=== PATIENT | female | born 1995 | race Caucasian/White ===

== ENCOUNTER 2016-10-20 09:22 | Emergency (ER) | payer MEDICAID ==
[2016-10-20 09:30] VITALS: BP 115/69; BMI 34.5
--- NOTE | 2016-10-20 10:06 | DR.URIAD ---
HPI - Time Seen Time seen: 09:55 - PCP Primary Care Physician: NFD - Complaint Chief Complaint Doctors Comments: Patient presents with complaint of sore throat for 4-5 days has been on amoxicillin for four days, continues to have sore throat. Nasal congestion, intermittent cough. Chief Complaint:: PT C/O EAR AND THROAT PAIN THAT STARTED A FEW DAYS AGO... Self Treatment fo Chief Complaint: OTC ANALGESIA - Source History Provided: Patient - Mode of Arrival Mode of Arrival: Ambulatory - Timing Onset of Chief Complaint: 10/17/16 - Quality Shortness of Breath: none PMH - PMH Past Medical History: Yes Past Medical History Comment: AUTISM Past Surgical History: No - Family History History of Family Medical Conditions: No - Social History Does patient currently use any type of tobacco product: No Have you used tobacco products in the last 12 months: No Type of Tobacco Use: None Does any household member use tobacco: No Alcohol Use: None Do you use any recreational Drugs:: No Lives With: Family Lives Where: Home - infectious screening In the last 2 months have you had wt loss of >10#?: NO Have you had fever, night sweats or hemotysis?: No Have you traveled outside the country in the last 6 months?: No Isolation: Standard ROS - Review of Systems Eyes: No Symptoms Reported ENTM: No Symptoms Reported Respiratoy: No Symptoms Reported Cardiovascular: No Symptoms Reported Gastrointestinal/Abdominal: No Symptoms Reported Genitourinary: No Symptoms Reported Neurological: No Symptoms Reported Musculoskeletal: No Symptoms Reported PE - Vital Signs Vitals: Temperature 97.6 F Pulse Rate 82 Respiratory Rate 22 Blood Pressure 115/69 O2 Sat by Pulse Oximetry 99 - Diagnosis Discharge Problem: Pharyngitis Qualifiers: Pharyngitis/tonsillitis etiology: other specified organisms Qualified Code(s): J02.8 - Acute pharyngitis due to other specified organisms - Discharge Plan Condition: Stable Prescriptions: Acetaminophen/Codeine Tab [TYLENOL w/CODEINE #3 (300 MG/30 MG) *] 1 tab PO Q4- 6H PRN #12 tab PRN Reason: Pain Sulfamethoxazole-Trimethoprim [BACTRIM DS TAB 800/160 MG *] 1 tab PO BID #20 tab - Follow ups/Referrals Follow ups/Referrals: NFD,None [Primary Care Provider] - 3 days - Instructions Instructions: Folliculitis
== END 2016-10-20 10:22 | disposition home or self-care (01) ==
LOC: ER 09:40
DX: J02.8 Acute pharyngitis due to other specified organisms (principal)
CPT/HCPCS: 99281; 99282